=== PATIENT | male | born 1960 | race Caucasian/White ===

== ENCOUNTER 2021-09-03 21:15 | Emergency (ER) | payer BC ==
[~2021-09-03 21:15] MED LIST: AMLODIPINE BESYL5 MG PO; ASPIR 8181 MG PO; ASPIRIN EC325 MG PO; ASPIRIN325 MG PO; BRILINTA 90 MG90 MG PO; CLOPIDOGREL75 MG PO; CRESTOR20 MG PO; CYCLOBENZAPRINE10 MG PO; HYDROCHLOROTHIA25 MG PO; LISINOPRIL30 MG PO; METOPROLOL SUCC25 MG PO; PANTOPRAZOLE SO40 MG PO; POTASSIUM CHLO10 ME1 PO; VIT B12 SL; VIT D PO; ZYRTEC10 MG PO
[2021-09-03 21:52] LABS: HEMOGLOBIN 16.4 gm/dl (14.0-17.5); RED BLOOD COUNT 5.16 M/UL (4.20-5.50); WHITE BLOOD COUNT 8.5 K/UL (4.5-11.0)
[2021-09-03 22:14] LABS: BUN/CREATININE RATIO 19 (0-10)
[2021-09-04] MEDS ORDERED: MOBIC15 MG PO (01:27)
== END 2021-09-04 01:30 | disposition home or self-care (01) ==
LOC: ER1 21:15
PROVIDERS: Emergency Medicine
DX: K43.9 Ventral hernia without obstruction or gangrene (principal); E78.5 Hyperlipidemia, unspecified; I10 Essential (primary) hypertension; Z87.442 Personal history of urinary calculi; F17.200 Nicotine dependence, unspecified, uncomplicated
CPT/HCPCS: 36415; 71045; 80048; 80076; 81001; 82550; 82553; 83690; 83874; 84484; 85025; 93005; 99284; Q9967

== ENCOUNTER → 2021-09-24 | Outpatient (CLI) | payer BC ==
[~2021-09-24] MED LIST changes: +HYDRALAZINE HCL25 MG PO; +LEVOCETIRIZINE D5 MG PO; -LISINOPRIL30 MG PO; +LISINOPRIL40 MG PO; +MOBIC15 MG PO; +ZINC50 M2 PO
[2021-09-24 09:56] LABS: BUN/CREATININE RATIO 14 (0-10)
== END ==
LOC: OPSV2 08:00
PROVIDERS: Surgery
DX: Z01.812 Encounter for preprocedural laboratory examination (principal)
CPT/HCPCS: 36415; 80048

== ENCOUNTER → 2021-09-30 | Day surgery (SDC) | payer BC ==
[~2021-09-30] MED LIST changes: +COLACE100 MG PO; +HYDROCODON-ACE1 EAC2 PO
== END | disposition home or self-care (01) ==
LOC: OR 07:30
DX: K43.7 Other and unspecified ventral hernia with gangrene (principal); I10 Essential (primary) hypertension; I25.10 Atherosclerotic heart disease of native coronary artery without angina pectoris; E78.5 Hyperlipidemia, unspecified; E66.9 Obesity, unspecified; E55.9 Vitamin D deficiency, unspecified; Z79.82 Long term (current) use of aspirin; Z95.5 Presence of coronary angioplasty implant and graft; Z68.36 Body mass index [BMI] 36.0-36.9, adult; Z20.822 Contact with and (suspected) exposure to COVID-19; Z79.4 Long term (current) use of insulin
CPT/HCPCS: C1781; J0690; J1100; J1170; J1885; J2250; J2405; J2704; J2710; J3010; J7120

== ENCOUNTER → 2022-02-05 | Outpatient (CLI) | payer BC | LOC: EXRD 11:31 | DX: M54.50 Low back pain, unspecified (principal); Z87.39 Personal history of other diseases of the musculoskeletal system and connective tissue; M47.816 Spondylosis without myelopathy or radiculopathy, lumbar region | CPT/HCPCS: 72070; 72100 ==